=== PATIENT | female | born 1985 | race Caucasian/White ===

== ENCOUNTER 2017-10-20 05:51 | Emergency (ER) | payer MEDICAID ==
[~2017-10-20] VITALS: Ht 165.1 cm; Wt 93.0 kg
--- NOTE | 2017-10-20 05:59 | NUR ---
PT BB FRIEND C/O "ABDOMINAL PAIN SINCE WEDNESDAY AFTER STARTING ATB". PT STATES PAIN IS A 5/10, NON RADIATING, AND GENERALIZED TO THE ABD REGION. GUARDING AND GRIMACING WAS NOTED DURING PALPATION OF THE ABD. SKIN IS PINK AND WARM TO TOUCH. AAOX4. VSS AND NO S/S OF ACUTE DISTRESS NOTED. AWAITING MD LIZAMA.
[2017-10-20] MEDS ORDERED: IV NS 0.9% 1,000 ML BAG IV ONE (06:30)
[2017-10-20] MEDS ORDERED: KETOROLAC TROMETHAMINE INJ 30 MG/ML VIAL IV ONE (06:30)
[2017-10-20] MEDS ORDERED: KETOROLAC TROMETHAMINE 15 MG/ML VIAL ONE (06:32)
--- NOTE | 2017-10-20 06:38 | NUR ---
PELVIC EXAM SET UP AT THE BEDSIDE. DR. RODRIGUES & MYSELF AT THE BEDSIDE FOR EXAM. CULTURES OBTAINED AND SENT TO LAB.
--- NOTE | 2017-10-20 06:50 | NUR ---
PT AMBULATED WITH STEADY GAIT TO THE RESTROOM TO GIVE URINE SAMPLE.
[2017-10-20 06:51] LABS: BASOPHILS # (AUTO) 0.1 /CMM (0.0-0.2); BASOPHILS % (AUTO) 0.3 % (0.0-2.0); EOSINOPHILS % (AUTO) 0.1 % (0.0-6.0); HEMATOCRIT 38 % (33-45); HEMOGLOBIN 13.2 g/dL (11.5-14.8); LYMPHOCYTES # (AUTO) 1.8 /CMM (0.8-4.8); MEAN CORPUSCULAR HEMOGLOBIN 33 PG (26.0-33.0); MEAN CORPUSCULAR HGB CONC 34 g/dl (31.0-36.0); MEAN CORPUSCULAR VOLUME 95 fL (82-100); MONOCYTES # (AUTO) 1.1 /CMM (0.1-1.30); MONOCYTES % (AUTO) 7.3 % (2.0-12.0); NEUTROPHILS # (AUTO) 12.3 /CMM (1.8-8.9); NEUTROPHILS % (AUTO) 80.3 % (43.0-81.0); PLATELET COUNT (AUTO) 317 /CMM (150-450); RDW COEFFICIENT OF VARIATION 12.8 (11.5-15.0); RED BLOOD CELL COUNT(AUTO) 4.04 MIL/uL (4.0-5.2); WHITE BLOOD COUNT (AUTO) 15.3 K/uL (4.3-11.0)
[2017-10-20 06:57] LABS: CALCIUM, SERUM 9.1 mg/dL (8.5-10.1); CREATININE 0.9 mg/dL (0.6-1.3); POTASSIUM 3.3 mmol/L (3.5-5.1)
[2017-10-20 07:08] LABS: ALBUMIN 3.5 g/dL (3.4-5.0); BILIRUBIN,DIRECT 0.2 mg/dL (0.0-0.2); BILIRUBIN,TOTAL 1.3 mg/dL (0.2-1.0); TOTAL PROTEIN, SERUM 7.8 g/dL (6.4-8.2)
--- NOTE | 2017-10-20 07:14 | NUR ---
GAVE REPORT TO MILO PEREZ FOR MICHAEL
[2017-10-20 07:15] LABS: APPEARANCE,URINE SL CLOUDY (CLEAR); BILIRUBIN,URINE 1+ (NEGATIVE); BLOOD, URINE 3+ Ery/uL (NEGATIVE); COLOR,URINE YELLOW (YELLOW); KETONES,URINE TRACE (NEGATIVE); LEUKOCYTE ESTERASE ,URINE TRACE (NEGATIVE); NITRITE, URINE NEGATIVE (NEGATIVE); PROTEIN,URINE 1+ mg/dl (NEGATIVE); UGLUCOSE NEGATIVE (NEGATIVE); UROBILINOGEN,URINE 0.2 EU/dL (0.2)
[2017-10-20] MEDS ORDERED: IOHEXOL-300 100 ML VIAL IV ONE (07:26)
[2017-10-20] MEDS ORDERED: IV NS 0.9% 250 ML IV ONE (07:27)
[2017-10-20] MEDS ORDERED: CT SWABBABLE VALVE TRANS SET 1 EA INFUS.SET MC ONE (07:27)
[2017-10-20 07:35] LABS: BACTERIA,URINE Few /HPF (None Seen); RBC,URINE 81-100 /HPF (0-2); SQUAMOUS EPITHELIAL CELL,UR Few /HPF (None Seen)
--- NOTE | 2017-10-20 09:00 | NUR ---
ULTRASOUND AT BEDSIDE
[2017-10-20] MEDS ORDERED: POTASSIUM CHLORIDE 20 MEQ TAB.PRT.SR PO ONE ×2 (09:30→09:47)
[2017-10-20 09:59] VITALS: BP 134/68
== END 2017-10-20 10:09 | disposition home or self-care (01) ==
LOC: ER 05:51
DX: O99.281 Endocrine, nutritional and metabolic diseases complicating pregnancy, first trimester (principal); E87.6 Hypokalemia; N73.9 Female pelvic inflammatory disease, unspecified; N28.89 Other specified disorders of kidney and ureter; D72.829 Elevated white blood cell count, unspecified; F10.10 Alcohol abuse, uncomplicated; N84.0 Polyp of corpus uteri; Q63.1 Lobulated, fused and horseshoe kidney; Z88.0 Allergy status to penicillin; Z3A.01 Less than 8 weeks gestation of pregnancy
CPT/HCPCS: 36415; 76856-TC; 80048-TC; 80076-TC; 81000-TC; 83605-TC; 83690-TC; 84702-TC; 85025-TC; 86850-TC; 87210-TC; 87491; 87591; A4606; J1885; J7030; J7050; Q9967; Z7610

== ENCOUNTER 2018-03-07 09:26 | Emergency (ER) | payer SELFPAY ==
[~2018-03-07] VITALS: Ht 165.1 cm; Wt 99.8 kg
--- NOTE | 2018-03-07 09:43 | NUR ---
A/OX4, C/O DYSURIA AND URINARY FREQUNCY X 2 WEEKS. DENIES HEMATURIA. NAD. RR EVEN AND UNLABORED. SEEN AND EVALUATED BR ER
[2018-03-07 09:59] LABS: APPEARANCE,URINE Turbid (CLEAR); BILIRUBIN,URINE Negative (NEGATIVE); BLOOD, URINE Moderate Ery/uL (NEGATIVE); COLOR,URINE Yellow (YELLOW); KETONES,URINE Negative (NEGATIVE); LEUKOCYTE ESTERASE ,URINE Moderate (NEGATIVE); NITRITE, URINE Negative (NEGATIVE); PROTEIN,URINE 30 mg/dl (NEGATIVE); UGLUCOSE Negative (NEGATIVE); UROBILINOGEN,URINE 0.2 EU/dL (0.2)
[2018-03-07 10:05] LABS: BACTERIA,URINE Few /HPF (None Seen); SQUAMOUS EPITHELIAL CELL,UR Few /HPF (None Seen); WBC,URINE 80-100 /HPF (0-3)
[2018-03-07 10:06] LABS: RBC,URINE 20-40 /HPF (0-2)
--- NOTE | 2018-03-07 10:06 | NUR ---
Patient discharged to home in stable condition. Written and verbal after care instructions given. Patient verbalizes understanding of instruction. Ambulatory with a steady gait.
[2018-03-07 10:07] VITALS: BP 130/86
== END 2018-03-07 10:08 | disposition home or self-care (01) ==
LOC: ER 09:29
DX: N39.0 Urinary tract infection, site not specified (principal); Z88.0 Allergy status to penicillin
CPT/HCPCS: 81001; 84703; 99284; A4606; Z7610; 81000-TC

== ENCOUNTER 2018-03-08 22:16 | Emergency (ER) | payer SELFPAY ==
[~2018-03-08] VITALS: Ht 165.1 cm; Wt 99.8 kg
--- NOTE | 2018-03-08 23:15 | NUR ---
PT BB SELF C/O UPPER BACK, ABD PAIN W/ N/V X YESTERDAY, SEEN YESTERDAY FOR UTI GIVEN CIPROFLOXACIN & ZOFRAN, FEELING WORSE TODAY. PT STATES SHE IS ON HER SECOND DAY OF ANTIBIOTICS WITH NO RELIEVE. VSS. PT IS AAOX4. RESP EVEN AND UNLABORED. NO S/S OF ACUTE DISTRESS NOTED. PT PLACED ON MONITOR AND POX. PT SAFETY AND COMFORT MEASURES IN PLACE. AWAITING MD FOR EVAL.
[2018-03-08] MEDS ORDERED: ONDANSETRON HCL/PF 4 MG/2 ML VIAL IVP ONE (23:30)
[2018-03-08] MEDS ORDERED: IV NS 0.9% 1,000 ML BAG IV ONE (23:30)
[2018-03-08] MEDS ORDERED: MORPHINE SULFATE INJ 2 MG/ML DISP.SYRIN IV ONE (23:30)
[2018-03-08] MEDS ORDERED: ONDANSETRON HCL/PF 4 MG/2 ML VIAL ONE (23:33)
[2018-03-08] MEDS ORDERED: MORPHINE SULFATE INJ 4 MG/ML DISP.SYRIN ONE (23:34)
[2018-03-08 23:38] LABS: BASOPHILS # (AUTO) 0.1 /CMM (0.0-0.2); BASOPHILS % (AUTO) 0.3 % (0.0-2.0); HEMATOCRIT 40 % (33-45); HEMOGLOBIN 13.8 g/dL (11.5-14.8); LYMPHOCYTES # (AUTO) 2.4 /CMM (0.8-4.8); LYMPHOCYTES % (AUTO) 13.8 % (20.0-44.0); MEAN CORPUSCULAR HGB CONC 34 g/dl (31.0-36.0); MEAN CORPUSCULAR VOLUME 96 fL (82-100); MONOCYTES # (AUTO) 1.1 /CMM (0.1-1.30); MONOCYTES % (AUTO) 6.4 % (2.0-12.0); NEUTROPHILS # (AUTO) 13.6 /CMM (1.8-8.9); NEUTROPHILS % (AUTO) 79.5 % (43.0-81.0); PLATELET COUNT (AUTO) 369 /CMM (150-450); RDW COEFFICIENT OF VARIATION 12.8 (11.5-15.0); RED BLOOD CELL COUNT(AUTO) 4.16 MIL/uL (4.0-5.2); WHITE BLOOD COUNT (AUTO) 17.1 K/uL (4.3-11.0)
[2018-03-08 23:40] LABS: APPEARANCE,URINE SL CLOUDY (CLEAR); BILIRUBIN,URINE NEGATIVE (NEGATIVE); BLOOD, URINE 3+ Ery/uL (NEGATIVE); COLOR,URINE YELLOW (YELLOW); KETONES,URINE TRACE (NEGATIVE); LEUKOCYTE ESTERASE ,URINE NEGATIVE (NEGATIVE); NITRITE, URINE NEGATIVE (NEGATIVE); PROTEIN,URINE TRACE mg/dl (NEGATIVE); UGLUCOSE NEGATIVE (NEGATIVE); UROBILINOGEN,URINE 0.2 EU/dL (0.2)
--- NOTE | 2018-03-08 23:40 | NUR ---
PER LAB, PT'S URINE HAD SPILLED AND NEW URINE IS REQUIRED. PT IS UNABLE TO URINATE AT THIS TIME. MADE AWARE. WILL TRY AGAIN AT A LATER TIME
[2018-03-08 23:46] LABS: BACTERIA,URINE Few /HPF (None Seen); RBC,URINE 51-80 /HPF (0-2); SQUAMOUS EPITHELIAL CELL,UR Few /HPF (None Seen)
[2018-03-08 23:57] LABS: CALCIUM, SERUM 9.1 mg/dL (8.5-10.1); CREATININE 1.2 mg/dL (0.6-1.3); POTASSIUM 3.3 mmol/L (3.5-5.1)
[2018-03-09 00:02] LABS: ALBUMIN 3.5 g/dL (3.4-5.0); BILIRUBIN,DIRECT 0.1 mg/dL (0.0-0.2)
--- NOTE | 2018-03-09 01:18 | NUR ---
Patient discharged to home in stable condition. Written and verbal after care instructions given. Patient verbalizes understanding of instruction.IV removed. Catheter intact and site benign. Pressure and 4x4 applied to site. No bleeding noted. VSS UPON DISCHARGE
[2018-03-09 01:20] VITALS: BP 129/79
== END 2018-03-09 01:21 | disposition home or self-care (01) ==
LOC: ER 22:19
DX: N39.0 Urinary tract infection, site not specified (principal); R11.2 Nausea with vomiting, unspecified; L65.9 Nonscarring hair loss, unspecified; Z88.0 Allergy status to penicillin; Z87.440 Personal history of urinary (tract) infections
CPT/HCPCS: 36415; 80048-TC; 80076-TC; 81000-TC; 83690-TC; 84703-TC; 85025-TC; 87086-TC; A4606; J2270; J2405; J7030; Z7610

== ENCOUNTER 2018-07-05 16:04 | Emergency (ER) | payer MEDICAID ==
[~2018-07-05] VITALS: Ht 165.1 cm; Wt 98.9 kg
--- NOTE | 2018-07-05 16:14 | NUR ---
WATERMAN X 2 DAYS; TO ER FO TREATEMENT AND EVAL
[2018-07-05 16:28] LABS: APPEARANCE,URINE Slightly Cloudy (CLEAR); BILIRUBIN,URINE Negative (NEGATIVE); BLOOD, URINE Moderate Ery/uL (NEGATIVE); KETONES,URINE Negative (NEGATIVE); LEUKOCYTE ESTERASE ,URINE Negative (NEGATIVE); NITRITE, URINE Negative (NEGATIVE); PROTEIN,URINE 30 mg/dl (NEGATIVE); UGLUCOSE Negative (NEGATIVE); UROBILINOGEN,URINE 0.2 EU/dL (0.2)
[2018-07-05 16:29] LABS: COLOR,URINE Dark Yellow (YELLOW)
[2018-07-05 16:34] LABS: BACTERIA,URINE Few /HPF (None Seen); SQUAMOUS EPITHELIAL CELL,UR Many /HPF (None Seen); WBC,URINE 0-2 /HPF (0-3)
[2018-07-05 16:35] LABS: MUCUS,URINE Few /LPF (None Seen)
[2018-07-05] MEDS ORDERED: diphenhydrAMINE HCL 50 MG/ML VIAL ONE (17:03)
[2018-07-05] MEDS ORDERED: METOCLOPRAMIDE HCL 10 MG/2 ML VIAL ONE (17:03)
[2018-07-05] MEDS: IV NS 0.9% 250 ML BAG IV ONE (17:17)
[2018-07-05] MEDS: diphenhydrAMINE HCL 50 MG/ML VIAL IV ONE (17:17)
[2018-07-05] MEDS: METOCLOPRAMIDE HCL 10 MG/2 ML VIAL IV ONE (17:17)
--- NOTE | 2018-07-05 17:56 | NUR ---
Patient discharged to home in stable condition. Written and verbal after care instructions given. Patient verbalizes understanding of instruction.IV removed. Catheter intact and site benign. Pressure and 4x4 applied to site. No bleeding noted. vss
[2018-07-05 17:57] VITALS: BP 129/55
== END 2018-07-05 17:58 | disposition home or self-care (01) ==
LOC: ER 16:07
DX: G43.909 Migraine, unspecified, not intractable, without status migrainosus (principal); Z87.440 Personal history of urinary (tract) infections; Z88.0 Allergy status to penicillin
CPT/HCPCS: 81001; 84703; 96374; 96375; 99284; A4606; J1200; J2765; J7050; Z7610; 81000-TC

== ENCOUNTER 2019-11-28 22:13 | Emergency (ER) | payer MEDICAID ==
[~2019-11-28] VITALS: Ht 165.1 cm; Wt 102.1 kg
[2019-11-28 22:50] VITALS: BP 163/114
[2019-11-28] MEDS ORDERED: HYDROCODONE/APAP 5/325MG 1 EACH TABLET ONE (23:12)
[2019-11-28] MEDS ORDERED: HYDROCODONE/APAP 5/325MG 1 EACH TABLET PO ONE (23:30)
== END 2019-11-28 23:20 | disposition home or self-care (01) ==
LOC: ER 22:17
DX: K08.89 Other specified disorders of teeth and supporting structures (principal); Z88.0 Allergy status to penicillin

== ENCOUNTER 2022-07-09 16:36 | Emergency (ER) | payer MEDICAID ==
[~2022-07-09] VITALS: Ht 165.1 cm; Wt 100.7 kg
[2022-07-09] MEDS ORDERED: KETOROLAC TROMETHAMINE INJ 30 MG/ML VIAL ONE (18:18)
--- NOTE | 2022-07-09 18:24 | NUR ---
PT TAKEN TO RADIOLOGY FOR CT
[2022-07-09] MEDS ORDERED: KETOROLAC TROMETHAMINE INJ 30 MG/ML VIAL IV ONE (18:30)
[2022-07-09] MEDS ORDERED: IV NS 0.9% 1,000 ML IV ONE (18:30)
--- NOTE | 2022-07-09 18:40 | NUR ---
URINE SAMPLE COLLECTED AND SENT TO LAB
--- NOTE | 2022-07-09 18:48 | NUR ---
IV LINE ESTABLISHED ON RAC #[id number], BLOOD DRAWN AND SENT TO LAB
--- NOTE | 2022-07-09 19:47 | NUR ---
RECEIVED PATIENT AAOX4. WITH PERIPHERAL LINE ON RIGHT AC G20 WITH ONGOING IVF OF NS1L. PATIENT ABLE TO MAKE NEEDS KNOWN. ATTACHED TO MONITOR. VITALS CHECKED.
[2022-07-09 20:16] LABS: BILIRUBIN,URINE NEGATIVE (NEGATIVE); COLOR,URINE YELLOW (YELLOW); LEUKOCYTE ESTERASE ,URINE TRACE (NEGATIVE); NITRITE, URINE NEGATIVE (NEGATIVE); PROTEIN,URINE 100 mg/dl (NEGATIVE); UGLUCOSE NEGATIVE (NEGATIVE); UROBILINOGEN,URINE 0.2 EU/dL (0.2)
[2022-07-09 20:17] LABS: CALCIUM, SERUM 8.9 mg/dL (8.5-10.1); CREATININE 0.9 mg/dL (0.6-1.3); POTASSIUM 3.3 mmol/L (3.5-5.1)
[2022-07-09] MEDS ORDERED: KETO10TA2 PO (20:28)
[2022-07-09] MEDS ORDERED: SULF1TAB48 PO (20:28)
[2022-07-09 20:29] LABS: ALBUMIN 3.9 g/dL (3.4-5.0); BILIRUBIN,DIRECT 0.2 mg/dL (0.0-0.2); BILIRUBIN,TOTAL 0.7 mg/dL (0.2-1.0); TOTAL PROTEIN, SERUM 7.6 g/dL (6.4-8.2)
[2022-07-09 20:37] LABS: BACTERIA,URINE 2+ /HPF (None Seen); RBC,URINE TOO NUMEROUS TO COUN /HPF (0-2); SQUAMOUS EPITHELIAL CELL,UR Few /HPF (None Seen)
[2022-07-09 20:38] LABS: BASOPHILS # (AUTO) 0.1 K/uL (0.0-0.2); BASOPHILS % (AUTO) 0.6 % (0.0-2.0); EOSINOPHILS % (AUTO) 2.8 % (0.0-6.0); HEMATOCRIT 36 % (33-45); HEMOGLOBIN 12.4 g/dL (11.5-14.8); LYMPHOCYTES # (AUTO) 4.2 K/uL (0.8-4.8); MEAN CORPUSCULAR HGB CONC 34 g/dl (31.0-36.0); MEAN CORPUSCULAR VOLUME 93 fL (82-100); MONOCYTES # (AUTO) 0.5 K/uL (0.1-1.30); MONOCYTES % (AUTO) 4.3 % (2.0-12.0); NEUTROPHILS # (AUTO) 6.3 K/uL (1.8-8.9); NEUTROPHILS % (AUTO) 55.3 % (43.0-81.0); PLATELET COUNT (AUTO) 562 K/uL (150-450); RED BLOOD CELL COUNT(AUTO) 3.91 MIL/uL (4.0-5.2); WHITE BLOOD COUNT (AUTO) 11.5 K/uL (4.3-11.0)
--- NOTE | 2022-07-09 20:50 | NUR ---
IV CANNULA REMOVED.
--- NOTE | 2022-07-09 20:51 | NUR ---
Patient discharged to home in stable condition. Written and verbal after care instructions given. Patient verbalizes understanding of instruction.
[2022-07-09 20:52] VITALS: BP 135/90
== END 2022-07-09 20:53 | disposition home or self-care (01) ==
LOC: ER 16:39
DX: N23 Unspecified renal colic (principal); N39.0 Urinary tract infection, site not specified; Z87.442 Personal history of urinary calculi; Z88.0 Allergy status to penicillin; Z79.899 Other long term (current) drug therapy
CPT/HCPCS: 99284; 74176; 96374; 96361; 85025; 80048; 87086; 83690; 80076; 84703; 81001; 36415; J1885; J7030

== ENCOUNTER 2023-12-08 12:04 | Emergency (ER) | payer MEDICAID ==
[~2023-12-08] VITALS: Ht 165.1 cm; Wt 100.2 kg
[~2023-12-08 12:04] MED LIST: KETO10TA2 PO; SULF1TAB48 PO
[2023-12-08] MEDS ORDERED: KETOROLAC TROMETHAMINE 15 MG/ML VIAL ONE (12:47)
[2023-12-08] MEDS ORDERED: ONDANSETRON HCL/PF 4 MG/2 ML VIAL ONE (12:47)
[2023-12-08] MEDS: IV NS 0.9% 1,000 ML BAG IV ONE (12:48)
[2023-12-08] MEDS: ONDANSETRON HCL/PF 4 MG/2 ML VIAL IVP ONE (12:50)
[2023-12-08 12:54] LABS: BASOPHILS % (AUTO) 0.2 % (0.0-2.0); HEMATOCRIT 37 % (33-45); HEMOGLOBIN 12.4 g/dL (11.5-14.8); LYMPHOCYTES # (AUTO) 1.5 K/uL (0.8-4.8); LYMPHOCYTES % (AUTO) 7.6 % (20.0-44.0); MEAN CORPUSCULAR HEMOGLOBIN 29 PG (26.0-33.0); MEAN CORPUSCULAR HGB CONC 33 g/dl (31.0-36.0); MEAN CORPUSCULAR VOLUME 86 fL (82-100); MONOCYTES # (AUTO) 1.4 K/uL (0.1-1.30); MONOCYTES % (AUTO) 6.8 % (2.0-12.0); NEUTROPHILS % (AUTO) 85.4 % (43.0-81.0); PLATELET COUNT (AUTO) 369 K/uL (150-450); RED BLOOD CELL COUNT(AUTO) 4.33 MIL/uL (4.0-5.2)
[2023-12-08 13:10] LABS: PREGNANCY TEST URINE QUAL NEGATIVE (NEGATIVE)
[2023-12-08 13:13] LABS: APPEARANCE,URINE TURBID (CLEAR); COLOR,URINE DARK YELLOW (YELLOW); PROTEIN,URINE 3+ mg/dl (NEGATIVE); UGLUCOSE NEGATIVE (NEGATIVE)
[2023-12-08 13:14] LABS: BILIRUBIN,URINE NEGATIVE (NEGATIVE); BLOOD, URINE 3+ Ery/uL (NEGATIVE); KETONES,URINE NEGATIVE (NEGATIVE); LEUKOCYTE ESTERASE ,URINE 3+ (NEGATIVE); NITRITE, URINE POSITIVE (NEGATIVE); UROBILINOGEN,URINE 0.2 EU/dL (0.2)
[2023-12-08 13:19] LABS: ADD URINE CULTURE YES; BACTERIA,URINE Moderate /HPF (None Seen); RBC,URINE 21-50 /HPF (0-2); SQUAMOUS EPITHELIAL CELL,UR Rare /HPF (None Seen); WBC,URINE TOO NUMEROUS TO COUN /HPF (0-3)
[2023-12-08] MEDS: KETOROLAC TROMETHAMINE 15 MG/ML VIAL IV ONE (13:19)
[2023-12-08 13:34] LABS: POTASSIUM 3.4 mmol/L (3.5-5.1)
[2023-12-08 13:40] LABS: ALBUMIN 3.3 g/dL (3.4-5.0); BILIRUBIN,DIRECT 0.3 mg/dL (0.0-0.2); BILIRUBIN,TOTAL 1.8 mg/dL (0.2-1.0); TOTAL PROTEIN, SERUM 7.7 g/dL (6.4-8.2)
[2023-12-08] MEDS ORDERED: CEFTRIAXONE 1GM BAG (ER ONLY) 50 ML IV ONE (13:40)
[2023-12-08] MEDS: CEFTRIAXONE 1 G in IV D5W 50 ML IV ONE (14:00)
[2023-12-08] MEDS ORDERED: CEFD300C3 PO (14:35)
[2023-12-08] MEDS ORDERED: IBUP-1955 PO (14:35)
[2023-12-08 14:49] VITALS: BP 121/78; TEMP 99; O2SAT 98
[2023-12-14] MEDS ORDERED: SULF1TAB48 PO (08:19)
== END 2023-12-08 14:49 | disposition home or self-care (01) ==
LOC: ER 12:11
DX: N12 Tubulo-interstitial nephritis, not specified as acute or chronic (principal); Q63.1 Lobulated, fused and horseshoe kidney; D72.829 Elevated white blood cell count, unspecified; E87.6 Hypokalemia; R11.0 Nausea; I10 Essential (primary) hypertension; Z87.442 Personal history of urinary calculi; Z88.0 Allergy status to penicillin; Z20.822 Contact with and (suspected) exposure to COVID-19
CPT/HCPCS: 99285; 74176; 96365; 71045; 96375; 96361; 87426; 93005; 87804 ×2; 85025; 80048; 87086; 83690; 80076; 84703; 81001; 36415; 82962; J0696 ×2; J2405; J7060; J7030 ×2; J1885

== ENCOUNTER 2023-12-12 14:41 | Emergency (ER) | payer MEDICAID ==
[~2023-12-12] VITALS: Ht 165.1 cm; Wt 99.8 kg
[~2023-12-12 14:41] MED LIST changes: +CEFD300C3 PO; +IBUP-1955 PO
[2023-12-12] MEDS ORDERED: SULF1TAB48 PO (16:23)
[2023-12-12 16:34] VITALS: BP 135/88; TEMP 98; O2SAT 97
[2023-12-14] MEDS ORDERED: SULF1TAB48 PO (08:19)
== END 2023-12-12 16:29 | disposition home or self-care (01) ==
LOC: ER 14:43
DX: N12 Tubulo-interstitial nephritis, not specified as acute or chronic (principal); I10 Essential (primary) hypertension; Z87.442 Personal history of urinary calculi; Z88.0 Allergy status to penicillin; Z79.899 Other long term (current) drug therapy

== ENCOUNTER 2024-01-07 15:27 | Emergency (ER) | payer MEDICAID ==
[~2024-01-07] VITALS: Ht 165.1 cm; Wt 99.8 kg
[~2024-01-07 15:27] MED LIST changes: -CEFD300C3 PO
[2024-01-07] MEDS ORDERED: CYCL10TA9 PO (17:12)
[2024-01-07 18:37] VITALS: BP 132/61; TEMP 98.6; O2SAT 97
== END 2024-01-07 18:38 | disposition home or self-care (01) ==
LOC: ER 15:31
DX: M79.662 Pain in left lower leg (principal); M25.562 Pain in left knee; Z87.442 Personal history of urinary calculi; Z88.0 Allergy status to penicillin; Z79.899 Other long term (current) drug therapy
CPT/HCPCS: 73564-TC; 93971-TC

== ENCOUNTER 2024-04-03 10:23 | Emergency (ER) | payer MEDICAID ==
[~2024-04-03] VITALS: Ht 165.1 cm; Wt 100.2 kg
[~2024-04-03 10:23] MED LIST changes: +CYCL10TA9 PO
[2024-04-03 11:19] LABS: APPEARANCE,URINE SLIGHTLY CLOUDY (CLEAR); BILIRUBIN,URINE NEGATIVE (NEGATIVE); BLOOD, URINE 2+ Ery/uL (NEGATIVE); COLOR,URINE YELLOW (YELLOW); KETONES,URINE TRACE mg/dL (NEGATIVE); LEUKOCYTE ESTERASE ,URINE 1+ (NEGATIVE); NITRITE, URINE NEGATIVE (NEGATIVE); PROTEIN,URINE 1+ mg/dl (NEGATIVE); UGLUCOSE NEGATIVE (NEGATIVE); UROBILINOGEN,URINE 0.2 EU/dL (0.2)
[2024-04-03 11:22] LABS: PREGNANCY TEST URINE QUAL NEGATIVE (NEGATIVE)
[2024-04-03 11:55] LABS: ADD URINE CULTURE YES; BACTERIA,URINE Moderate /HPF (None Seen); SQUAMOUS EPITHELIAL CELL,UR Many /HPF (None Seen)
[2024-04-03] MEDS ORDERED: FLUC150T PO (12:01)
[2024-04-03 12:07] VITALS: BP 135/71; TEMP 98.4; O2SAT 98
== END 2024-04-03 12:08 | disposition home or self-care (01) ==
LOC: ER 10:29
DX: N76.0 Acute vaginitis (principal); F19.10 Other psychoactive substance abuse, uncomplicated; Z88.0 Allergy status to penicillin
CPT/HCPCS: 81001; 84703-TC

== ENCOUNTER 2024-04-06 06:20 | Emergency (ER) | payer MEDICAID ==
[~2024-04-06] VITALS: Ht 172.7 cm; Wt 90.7 kg
[~2024-04-06 06:20] MED LIST changes: +FLUC150T PO
[2024-04-06] MEDS ORDERED: IBUPROFEN 600 MG TABLET ONE (07:03)
[2024-04-06] MEDS ORDERED: ACETAMINOPHEN ES 500 MG TABLET ONE (07:03)
[2024-04-06] MEDS: ACETAMINOPHEN ES 500 MG TABLET PO ONE (07:12)
[2024-04-06] MEDS: IBUPROFEN 600 MG TABLET PO ONE (07:12)
[2024-04-06] MEDS: FOSFOMYCIN TROMETHAMINE 3 G/PKT PACKET PO ONE (07:26)
[2024-04-06] MEDS ORDERED: IBUP-1955 PO (07:45)
[2024-04-06 08:01] VITALS: BP 121/74; TEMP 98.8; O2SAT 100
== END 2024-04-06 08:02 | disposition home or self-care (01) ==
LOC: ER 06:23
DX: N39.0 Urinary tract infection, site not specified (principal); F19.10 Other psychoactive substance abuse, uncomplicated; Z87.442 Personal history of urinary calculi; Z88.0 Allergy status to penicillin; Z88.8 Allergy status to other drugs, medicaments and biological substances

== ENCOUNTER 2024-04-08 02:15 | Emergency (ER) | payer MEDICAID ==
[~2024-04-08] VITALS: Ht 165.1 cm; Wt 100.2 kg
[2024-04-08 04:32] VITALS: TEMP 98
[2024-04-08] MEDS ORDERED: LEVO500T90 PO (05:51)
[2024-04-08 06:39] LABS: BASOPHILS # (AUTO) 0.1 K/uL (0.0-0.2); BASOPHILS % (AUTO) 0.6 % (0.0-2.0); EOSINOPHILS # (AUTO) 0.1 K/uL (0.0-0.7); EOSINOPHILS % (AUTO) 0.5 % (0.0-6.0); HEMATOCRIT 38 % (33-45); HEMOGLOBIN 12.8 g/dL (11.5-14.8); LYMPHOCYTES # (AUTO) 3.9 K/uL (0.8-4.8); LYMPHOCYTES % (AUTO) 33.6 % (20.0-44.0); MEAN CORPUSCULAR HEMOGLOBIN 30 PG (26.0-33.0); MEAN CORPUSCULAR HGB CONC 34 g/dl (31.0-36.0); MEAN CORPUSCULAR VOLUME 89 fL (82-100); MONOCYTES # (AUTO) 0.6 K/uL (0.1-1.30); MONOCYTES % (AUTO) 4.8 % (2.0-12.0); NEUTROPHILS % (AUTO) 60.5 % (43.0-81.0); PLATELET COUNT (AUTO) 452 K/uL (150-450); RED BLOOD CELL COUNT(AUTO) 4.24 MIL/uL (4.0-5.2); RED CELL DISTRIBUTION WIDTH 13.9 % (11.5-15.0); WHITE BLOOD COUNT (AUTO) 11.6 K/uL (4.3-11.0)
[2024-04-08 06:50] LABS: ALBUMIN 3.7 g/dL (3.4-5.0); CREATININE 0.8 mg/dL (0.6-1.3); POTASSIUM 3.7 mmol/L (3.5-5.1); TOTAL PROTEIN, SERUM 7.5 g/dL (6.4-8.2)
[2024-04-08 07:31] LABS: APPEARANCE,URINE CLOUDY (CLEAR); BILIRUBIN,URINE NEGATIVE (NEGATIVE); BLOOD, URINE 3+ Ery/uL (NEGATIVE); COLOR,URINE YELLOW (YELLOW); KETONES,URINE TRACE mg/dL (NEGATIVE); LEUKOCYTE ESTERASE ,URINE NEGATIVE (NEGATIVE); NITRITE, URINE NEGATIVE (NEGATIVE); PH,URINE 5.5 (5.0-8.0); PROTEIN,URINE TRACE mg/dl (NEGATIVE); UGLUCOSE NEGATIVE (NEGATIVE); UROBILINOGEN,URINE 0.2 EU/dL (0.2)
[2024-04-08 08:09] LABS: ADD URINE CULTURE YES; BACTERIA,URINE 1+ /HPF (None Seen); SQUAMOUS EPITHELIAL CELL,UR Many /HPF (None Seen)
[2024-04-08 08:10] LABS: MUCUS,URINE Few /LPF (None Seen); PREGNANCY TEST URINE QUAL NEGATIVE (NEGATIVE); TRICHOMONAS,URINE None Seen /HPF (None Seen); YEAST,URINE None Seen /HPF (None Seen)
[2024-04-08 08:21] VITALS: BP 129/88; O2SAT 100
[2024-04-08] MEDS ORDERED: PHEN-704 PO (10:02)
[2024-04-08] MEDS ORDERED: FLUC150T PO (10:02)
== END 2024-04-08 10:09 | disposition home or self-care (01) ==
LOC: ER 02:17
DX: R30.0 Dysuria (principal); R35.0 Frequency of micturition; F19.10 Other psychoactive substance abuse, uncomplicated; Z87.442 Personal history of urinary calculi; Z88.0 Allergy status to penicillin; Z88.8 Allergy status to other drugs, medicaments and biological substances
CPT/HCPCS: 36415; 80053-TC; 81001; 84703-TC; 85025-TC

== ENCOUNTER 2024-10-05 14:11 | Emergency (ER) | payer MEDICAID ==
[~2024-10-05] VITALS: Ht 165.1 cm; Wt 90.7 kg
[~2024-10-05 14:11] MED LIST changes: +PHEN-704 PO
[2024-10-05] MEDS: IV NS 0.9% 1,000 ML BAG IV ONE (15:26)
[2024-10-05] MEDS ORDERED: KETOROLAC TROMETHAMINE 15 MG/ML VIAL ONE (15:34)
[2024-10-05] MEDS: KETOROLAC TROMETHAMINE 15 MG/ML VIAL IV ONE (15:38)
[2024-10-05 16:27] LABS: ALBUMIN 3.6 g/dL (3.4-5.0); BILIRUBIN,DIRECT 0.3 mg/dL (0.0-0.2); CALCIUM, SERUM 8.8 mg/dL (8.5-10.1); CREATININE 0.8 mg/dL (0.6-1.3); POTASSIUM 3.4 mmol/L (3.5-5.1)
[2024-10-05 16:35] LABS: BASOPHILS % (AUTO) 0.2 % (0.0-2.0); HEMATOCRIT 36 % (33-45); HEMOGLOBIN 12.3 g/dL (11.5-14.8); LYMPHOCYTES # (AUTO) 1.6 K/uL (0.8-4.8); LYMPHOCYTES % (AUTO) 20.5 % (20.0-44.0); MEAN CORPUSCULAR HEMOGLOBIN 31 PG (26.0-33.0); MEAN CORPUSCULAR HGB CONC 34 g/dl (31.0-36.0); MEAN CORPUSCULAR VOLUME 91 fL (82-100); MONOCYTES # (AUTO) 0.6 K/uL (0.1-1.30); MONOCYTES % (AUTO) 8.1 % (2.0-12.0); NEUTROPHILS # (AUTO) 5.7 K/uL (1.8-8.9); NEUTROPHILS % (AUTO) 71.2 % (43.0-81.0); PLATELET COUNT (AUTO) 377 K/uL (150-450); RED BLOOD CELL COUNT(AUTO) 4.02 MIL/uL (4.0-5.2); RED CELL DISTRIBUTION WIDTH 13.3 % (11.5-15.0)
[2024-10-05 16:51] LABS: APPEARANCE,URINE CLOUDY (CLEAR); BILIRUBIN,URINE NEGATIVE (NEGATIVE); BLOOD, URINE 1+ Ery/uL (NEGATIVE); COLOR,URINE YELLOW (YELLOW); KETONES,URINE NEGATIVE (NEGATIVE); LEUKOCYTE ESTERASE ,URINE NEGATIVE (NEGATIVE); NITRITE, URINE NEGATIVE (NEGATIVE); PROTEIN,URINE NEGATIVE (NEGATIVE); UGLUCOSE NEGATIVE (NEGATIVE); UROBILINOGEN,URINE 0.2 EU/dL (0.2)
[2024-10-05 17:05] LABS: ADD URINE CULTURE YES; BACTERIA,URINE 3+ /HPF (None Seen)
[2024-10-05 17:06] LABS: URINE AMORPHOUS URATE Moderate /HPF (None Seen)
[2024-10-05] MEDS ORDERED: NITR100C6 PO (18:26)
[2024-10-05 18:33] VITALS: BP 116/69; TEMP 98.4; O2SAT 99
== END 2024-10-05 18:34 | disposition home or self-care (01) ==
LOC: ER 14:53
DX: N39.0 Urinary tract infection, site not specified (principal); Q63.1 Lobulated, fused and horseshoe kidney; R53.83 Other fatigue; R53.81 Other malaise; Z87.442 Personal history of urinary calculi; Z88.0 Allergy status to penicillin; Z88.1 Allergy status to other antibiotic agents; Z20.822 Contact with and (suspected) exposure to COVID-19
CPT/HCPCS: 99285; 74176; 96374; 96361; 87426; 87804 ×2; 85025; 80048; 87086; 83690; 80076; 84703; 81001; 36415; J1885; J7030

== ENCOUNTER 2025-04-30 07:53 | Inpatient (IN) | payer MEDICAID ==
[~2025-04-30] VITALS: Ht 165.1 cm; Wt 87.1 kg
[~2025-04-30 07:53] MED LIST changes: +NITR100C6 PO
[2025-04-30 08:30] LABS: PLATELET COUNT (AUTO) 371 K/uL (150-450); RED BLOOD CELL COUNT(AUTO) 4.33 MIL/uL (4.0-5.2); RED CELL DISTRIBUTION WIDTH 12.6 % (11.5-15.0); WHITE BLOOD COUNT (AUTO) 16.1 K/uL (4.3-11.0)
[2025-04-30 08:36] LABS: CALCIUM, SERUM 9.0 mg/dL (8.5-10.1); CREATININE 0.8 mg/dL (0.6-1.3); SODIUM SERUM 137.0 mmol/L (136-145); UREA NITROGEN, BLOOD 11.0 mg/dL (7-18)
[2025-04-30 08:42] LABS: ASPARTATE AMINOTRANSFERASE 11.0 U/L (15-37); TOTAL PROTEIN, SERUM 7.2 g/dL (6.4-8.2)
[2025-04-30] MEDS ORDERED: MORPHINE SULFATE INJ 4 MG/ML DISP.SYRIN ONE ×2 (08:44→11:10)
[2025-04-30] MEDS ORDERED: ONDANSETRON HCL/PF 4 MG/2 ML VIAL ONE ×2 (08:44→11:11)
[2025-04-30] MEDS: MORPHINE SULFATE INJ 2 MG/ML DISP.SYRIN IV ONE ×2 (08:50→11:30)
[2025-04-30] MEDS: ONDANSETRON HCL/PF 4 MG/2 ML VIAL IVP ONE (08:50)
[2025-04-30] MEDS: IV NS 0.9% 500 ML BAG IV ONE (08:50)
[2025-04-30 10:18] LABS: APPEARANCE,URINE SLIGHTLY CLOUDY (CLEAR); BLOOD, URINE 2+ Ery/uL (NEGATIVE); LEUKOCYTE ESTERASE ,URINE 2+ (NEGATIVE); NITRITE, URINE POSITIVE (NEGATIVE); UGLUCOSE NEGATIVE (NEGATIVE)
[2025-04-30 10:32] LABS: PREGNANCY TEST URINE QUAL NEGATIVE (NEGATIVE)
[2025-04-30 10:41] LABS: ADD URINE CULTURE YES; SQUAMOUS EPITHELIAL CELL,UR Many /HPF (None Seen)
[2025-04-30] MEDS ORDERED: LEVOFLOXACIN 750 MG /D5W 150ML 150 ML IV ONE (11:10)
[2025-04-30] MEDS: IV NS 0.9% 1,000 ML BAG IV ONE (11:25)
[2025-04-30] MEDS: ONDANSETRON HCL/PF 4 MG/2 ML VIAL IV ONE (11:25)
[2025-04-30] MEDS: LEVOFLOXACIN 750 MG /D5W 150ML PIGGYBACK IV ONE (11:31)
[2025-04-30] MEDS: GENTAMICIN 80 MG in IV D5W 50 ML IV ONE (12:50)
[2025-04-30] MEDS ORDERED: ONDA-97 PO (14:27)
[2025-04-30] MEDS ORDERED: WEGOVY SQ (14:27)
[2025-04-30] MEDS ORDERED: LOSA100T31 PO (14:27)
[2025-04-30 16:00] VITALS: BP 119/74; TEMP 99.3; O2SAT 97
[2025-04-30] MEDS ORDERED: HYDROMORPHONE INJ SYRINGE 0.5 MG in IV D5W 50 ML IV PRN (16:00)
[2025-04-30] MEDS ORDERED: Z GUARD REMEDY 4 OZ OINT TP PRN (16:00)
[2025-04-30] MEDS: HYDROCODONE/APAP 5/325MG TABLET PO PRN (16:16)
[2025-04-30] MEDS: HYDROMORPHONE 1 MG/1 ML DISP.SYRIN IV PRN (18:20)
[2025-04-30 20:00] VITALS: BP 105/69; TEMP 98.6; O2SAT 100
[2025-04-30] MEDS: POTASSIUM CHLORIDE 10 MEQ TABLET.SA PO ONE (20:24)
[2025-05-01 08:00] VITALS: BP 107/74; TEMP 100.4; O2SAT 99
[2025-05-01 10:28] LABS: PLATELET COUNT (AUTO) 266 K/uL (150-450); RED BLOOD CELL COUNT(AUTO) 3.89 MIL/uL (4.0-5.2); RED CELL DISTRIBUTION WIDTH 12.5 % (11.5-15.0); WHITE BLOOD COUNT (AUTO) 11.9 K/uL (4.3-11.0)
[2025-05-01 10:38] LABS: CALCIUM, SERUM 8.8 mg/dL (8.5-10.1); CREATININE 0.8 mg/dL (0.6-1.3); SODIUM SERUM 132.0 mmol/L (136-145); UREA NITROGEN, BLOOD 10.0 mg/dL (7-18)
[2025-05-01] MEDS ORDERED: IOHEXOL-300 100 ML VIAL IV ONE (10:43)
[2025-05-01] MEDS: Potassium Chloride 10 MEQ in IV NS 0.9% 1,000 ML IV SCH (10:46)
[2025-05-01] MEDS: TAMSULOSIN 0.4 MG CAP.SR.24H PO SCH (11:28)
[2025-05-01] MEDS: LEVOFLOXACIN 500 MG /D5W 100ML 500 MG in PREMIX 1 EA IV SCH (12:14)
[2025-05-01] MEDS: ONDANSETRON HCL/PF 4 MG/2 ML VIAL IV PRN (14:53)
[2025-05-01 16:00] VITALS: BP 117/66; TEMP 99.5; O2SAT 99
[2025-05-01] MEDS: ACETAMINOPHEN 325 MG TABLET PO PRN (19:29)
[2025-05-01 20:00] VITALS: BP 106/76; TEMP 99.5; O2SAT 99
[2025-05-01] MEDS ORDERED: POTASSIUM CHLORIDE 20 MEQ TAB.PRT.SR PO ONE (20:30)
[2025-05-02] MEDS: ZOLPIDEM TARTRATE 5 MG TABLET PO PRN (00:16)
[2025-05-02 08:00] VITALS: BP 105/68; TEMP 99; O2SAT 98
[2025-05-02 08:43] LABS: SODIUM SERUM 137.0 mmol/L (136-145)
[2025-05-02 08:44] LABS: CALCIUM, SERUM 10.1 mg/dL (8.5-10.1); CREATININE 1.0 mg/dL (0.6-1.3); UREA NITROGEN, BLOOD 9.0 mg/dL (7-18)
[2025-05-02] MEDS ORDERED: LEVO500T90 PO (09:26)
[2025-05-02] MEDS ORDERED: LEVO250T59 PO (09:30)
[2025-05-02 09:44] LABS: RED BLOOD CELL COUNT(AUTO) 4.83 MIL/uL (4.0-5.2); WHITE BLOOD COUNT (AUTO) 10.3 K/uL (4.3-11.0)
[2025-05-02 09:45] LABS: PLATELET COUNT (AUTO) 289 K/uL (150-450); RED CELL DISTRIBUTION WIDTH 12.4 % (11.5-15.0)
== END 2025-05-02 12:30 | disposition home or self-care (01) | DRG 720 ==
LOC: ER 08:04 → MED 14:57
PROVIDERS: ADMIT Internal Medicine; ATTEND Internal Medicine
DX: A41.9 Sepsis, unspecified organism (principal); N12 Tubulo-interstitial nephritis, not specified as acute or chronic; E66.9 Obesity, unspecified; I10 Essential (primary) hypertension; Z87.442 Personal history of urinary calculi; Z96.0 Presence of urogenital implants; L65.9 Nonscarring hair loss, unspecified; Z88.0 Allergy status to penicillin; Z88.1 Allergy status to other antibiotic agents; Z79.899 Other long term (current) drug therapy; Q63.1 Lobulated, fused and horseshoe kidney; Z68.32 Body mass index [BMI] 32.0-32.9, adult; I87.8 Other specified disorders of veins
CPT/HCPCS: 36415; 74178; 80048-TC; 80076-TC; 81001; 83605-TC; 83690-TC; 83735-TC; 84703-TC; 85025-TC; 87040-TC; 87086-TC; 87186-TC; A4216; A4223; G0378; J1171; J1580; J1956; J2270; J2405; J3480; J7030; J7060; Q9967

== ENCOUNTER 2025-08-13 16:28 | Emergency (ER) | payer MEDICAID ==
[~2025-08-13] VITALS: Ht 165.1 cm; Wt 81.6 kg
[~2025-08-13 16:28] MED LIST changes: -CYCL10TA9 PO; -FLUC150T PO; -IBUP-1955 PO; -KETO10TA2 PO; +LEVO250T59 PO; -NITR100C6 PO; -PHEN-704 PO; -SULF1TAB48 PO
[2025-08-13 17:12] VITALS: O2SAT 99
[2025-08-13] MEDS: ALBUTEROL FS 2.5 MG/3 ML VIAL.NEB NEB ONE (17:12)
[2025-08-13] MEDS ORDERED: ALBUTEROL FS 2.5 MG/3 ML VIAL.NEB ONE (17:16)
[2025-08-13 17:19] VITALS: O2SAT 99
[2025-08-13] MEDS ORDERED: ALBU18HF2 INH (17:45)
[2025-08-13 18:01] VITALS: BP 115/79; TEMP 98.3; O2SAT 98
== END 2025-08-13 18:01 | disposition home or self-care (01) ==
LOC: ER 16:31
DX: R06.02 Shortness of breath (principal); J45.909 Unspecified asthma, uncomplicated; I10 Essential (primary) hypertension; Z88.0 Allergy status to penicillin; Z88.1 Allergy status to other antibiotic agents
CPT/HCPCS: 71045-TC